=== PATIENT | female | born 1945 | race Caucasian/White ===

== ENCOUNTER 2017-06-23 06:49 | Day surgery (SDC) | payer MEDICARE ==
[~2017-06-23 06:49] MED LIST: LISINOPRIL-HCTZ1 T11 PO; PRAVACHOL40 MG PO
[2017-06-23 07:58] LABS: BASOPHILS 0.3 % (0-2); EOSINOPHILS 1.3 % (0-7); HEMATOCRIT 40.9 % (36.0-48.0); HEMOGLOBIN 13.8 g/dL (12-16); IMMATURE GRANULOCYTES 0.2 % (0-5); LYMPHOCYTES 28.5 % (15-50); MCH 30.9 pg (26.0-34.0); MCHC 33.7 g/dL (31.0-37.0); MCV 91.7 fL (80.0-100.0); MEAN PLATELET VOLUME 9.5 fL (7.4-10.4); MONOCYTES 10.4 % (2-11); NEUTROPHILS 59.3 % (40-80); PLATELET COUNT 213 10x3/uL (130-400); RBC 4.46 10x6/uL (4.00-5.40); WBC 5.9 10x3/uL (4.8-10.8)
[2017-06-23 08:20] LABS: ANION GAP 14.1 mmol/L (8-16); APTT 33.1 SECONDS (22.8-39.4); CALCIUM 9.8 mg/dL (8.5-10.1); CARBON DIOXIDE 25.9 mmol/L (21.0-32.0); CREATININE - SERUM 1.5 mg/dL (0.6-1.3); INR 0.96 (0.85-1.17); PROTIME 12.6 SECONDS (11.6-15.0)
[2017-06-23 14:03] VITALS: BP 124/73; BMI 19.2
--- NOTE | 2017-07-02 10:04 | OP ---
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 PROCEDURES: 1. Total colonoscopy to cecum. 2. Cold endoscopic biopsies of the polyp and ablation of the remainder of the polypoid mass with the argon plasma office secretary. 3. Tattooing of the fold on which the mass sits with submucosal injection of Halley ink. REHAB/PRE VOCATIONAL COUNSELOR: None. BLOOD LOSS: Minimal. ANESTHESIA: General. COMPLICATIONS: None. The risks, possible complications, and alternatives to procedure were explained to the patient. She elects to proceed. OPERATIVE COURSE: The patient was conveyed to the operating room electively on 06/23/2017. General anesthesia was induced by anesthesia staff. The patient was placed in the Woods position. A digital rectal examination was performed. A colonoscope was inserted through the anus. It was easily advanced to the cecum. The prep was adequate. Upon withdrawal, I irrigated and aspirated extensively. A combination of direct imaging as well as narrow band imaging was utilized. The mass was at 1 meter. Multiple cold endoscopic biopsies were performed. I then ablated the remaining portion of the polyp with the argon plasma office secretary utilizing the right colon setting in the forced mode. Upon further withdrawal, there were some diminutive polyps which were all under 5 mm and these were not biopsied, but they were ablated with the argon plasma office secretary. A retroflexed view was obtained in the rectum. I then unretroflexed the scope and removed it under direct vision. I will see the patient in my office in 2-3 weeks. I am very concerned about of this tattooed lesion as this very likely could represent a malignancy. TRANSINT:[id number] Voice Confirmation ID: [id number] DOCUMENT ID: [id number] OPERATIVE REPORT [id number] TRENTON ZIMMERMAN MAY SHAFER MD at 1004 CC: CHILO VILLEGAS MD and KELSIE LI MD [id number] DICTATION DATE: 06/23/17 1629 PHILOSOPHY FACULTY MEMBER: 06/23/171932 [facility] 06/23/17 [facility] [address] [place] [address]
--- NOTE | 2017-07-02 10:04 | HP ---
PATIENT: TRENTON ZIMMERMAN MEDICAL RECORD: [id number] ACCOUNT: [id number] LOCATION:[place] : 43 ADMISSION DATE: 06/23/17 HISTORY AND PHYSICAL EXAMINATION There is a typed history and physical on the chart. I have personally reviewed the endoscopic photos. The patient was referred by Dr. Edge. The patient had a tubular adenoma with high-grade dysplasia in the transverse colon. She is now to undergone colonoscopy with polypectomy utilizing the argon plasma logistics assistant. The risks, possible complications, and alternatives to the procedure were explained to the patient. She elects to proceed. TRANSINT:[id number] Voice Confirmation ID: [id number] DOCUMENT ID: [id number] MAY SHAFER MD at 1004 CC: CHILO EDGE MD and KELSIE LI MD [id number] DICTATION DATE: 06/23/17 1625 SORT MANAGER: 06/23/17 1642 [facility] 06/23/[address] [address]
[2017-07-28] MEDS ORDERED: CALCIUM 500 + D1 TAB PO (12:21)
[2017-07-28] MEDS ORDERED: MULTIPLE VITAMI1 TA1 PO (12:22)
== END 2017-06-23 18:15 | disposition home or self-care (01) ==
LOC: D.OPS 06:49 → D.PAN 09:00 → D.OPS 09:15
PROVIDERS: Anesthesiology
DX: D12.3 Benign neoplasm of transverse colon (principal); Z01.812 Encounter for preprocedural laboratory examination

== ENCOUNTER 2017-07-30 08:39 | Inpatient (IN) | payer MEDICARE ==
[2017-07-30] VITALS (10 sets, daily range): BP systolic 115–126; BP diastolic 51–74; BMI 19.2; BMI 19.0
[~2017-07-30] VITALS: Ht 172.7 cm; Wt 56.7 kg
[~2017-07-30 08:39] MED LIST changes: +CALCIUM 500 + D1 TAB PO; +MULTIPLE VITAMI1 TA1 PO
[2017-07-30 09:16] LABS: HEMATOCRIT 41.5 % (36.0-48.0); HEMOGLOBIN 14.2 g/dL (12-16); MCH 30.5 pg (26.0-34.0); MCHC 34.2 g/dL (31.0-37.0); MCV 89.2 fL (80.0-100.0); MEAN PLATELET VOLUME 8.7 fL (7.4-10.4); RBC 4.65 10x6/uL (4.00-5.40); RDW 12.1 % (11.5-14.5); WBC 7.5 10x3/uL (4.8-10.8)
[2017-07-30 09:33] LABS: CALCIUM 9.8 mg/dL (8.5-10.1); CARBON DIOXIDE 25.3 mmol/L (21.0-32.0); CREATININE - SERUM 2.2 mg/dL (0.6-1.3); POTASSIUM - SERUM 3.3 mmol/L (3.5-5.1)
--- NOTE | 2017-07-30 12:16 | NUR ---
MANSOORDING BAND AND RING WITH STONES ON LEFT RING FINGER, TAPED, EXPLAINED THEY MAY NEED TO CUT AND REMOVE DURING SURGERY, SHE AGREED IF NECESSARY.
--- NOTE | 2017-07-30 16:25 | NUR ---
RETURNED FROM SURGERY. A/O X3. 4 SMALL INSERTION SITES TO ABDOMEN, CLEAN AND DRY. FIANCE IN ROOM. DENIES NEEDS.
--- NOTE | 2017-07-30 19:18 | NUR ---
DR SHAFER NOTIFIED OF DECREASED URINE OUTPUT. NEW ORDERS RECEIVED.
--- NOTE | 2017-07-30 19:30 | NUR ---
AROUSES TO VERBAL STIMULI. NO DISTRESS NOTED. EPIDURAL IN USE FOR PAIN CONTRO. PLEXI BOOTS APPLIED PER ORDERS. BUMEX 0.5 MG GIVEN IV PER ORDERS. STERI STRIPS INTACT TO ABD INCISIONS X 4. CL IN REACH.
--- NOTE | 2017-07-30 23:30 | NUR ---
PATIENT IS RESTING QUIETLY WITH EYES CLOSED. NO SIGNS OF DISTRESS NOTED. BED IN LOWEST POSITION, CALL LIGHT IN REACH. BED RAILS UP X'S 2.
[2017-07-31] VITALS: BP 126/62
--- NOTE | 2017-07-31 02:00 | NUR ---
AROUSES EASILY TO VERBAL STIMULI. NO DISTRESS NOTED. CL IN REACH
[2017-07-31 04:00] VITALS: BP 112/68
[2017-07-31 04:52] LABS: BASOPHILS 0.1 % (0-2); EOSINOPHILS 0 % (0-7); IMMATURE GRANULOCYTES 0.3 % (0-5); LYMPHOCYTES 10.3 % (15-50); MCHC 33.8 g/dL (31.0-37.0); MEAN PLATELET VOLUME 9.5 fL (7.4-10.4); MONOCYTES 11.9 % (2-11); NEUTROPHILS 77.4 % (40-80); RDW 12.3 % (11.5-14.5)
[2017-07-31 04:54] LABS: HEMATOCRIT 33.1 % (36.0-48.0); HEMOGLOBIN 11.2 g/dL (12-16); MCV 91.7 fL (80.0-100.0); PLATELET COUNT 183 10x3/uL (130-400); RBC 3.61 10x6/uL (4.00-5.40); WBC 11.2 10x3/uL (4.8-10.8)
[2017-07-31 05:09] LABS: ANION GAP 13.8 mmol/L (8-16); BILIRUBIN - TOTAL 0.54 mg/dL (0.2-1.3); CALCIUM 8.2 mg/dL (8.5-10.1); MAGNESIUM - SERUM 1.7 mg/dL (1.8-2.4); PHOSPHOROUS 3.8 mg/dL (2.5-4.9); PROTEIN - SERUM 6.3 g/dL (6.4-8.2)
--- NOTE | 2017-07-31 05:09 | NUR ---
EYES CLOSED. RESP EVEN AND UNALBORED. NO DISTRESS NOTED. CL IN REACH
[2017-07-31 05:16] LABS: CREATININE - SERUM 1.5 mg/dL (0.6-1.3); POTASSIUM - SERUM 3.8 mmol/L (3.5-5.1)
--- NOTE | 2017-07-31 07:49 | NUR ---
AWAKE AND ALERT. ORIENTED X3. STILL NUMB IN LOWER EXTREMETIES. DENIES PAIN. LUNGS ARE CLEAR BILATERALLY, NO COUGH NOTED. SKIN IS INTACT WITHOUT REDNESS EXCEPT 4 SMALL INSERTION SITES TO ABDOMEN WHICH ARE CLEAN AND DRY. HOLLINGSWORTH PATENT WITH CLEAR YELLOW URINE. INSTRUCTED IN USE OF IS WITH RETURN DEMONSTRATION. IV TO LEFT FOREARM IS PATENT WITHOUT REDNESS AT INSERTION SITE. SL TO LEFT HAND ALSO PATNET WITHOUT REDNESS. DENIES NEEDS.
[2017-07-31 09:13] VITALS: BP 119/57
--- NOTE | 2017-07-31 09:43 | NUR ---
RESTING QUIETLY IN BED. DENIES NEEDS.
[2017-07-31 10:27] VITALS: Ht 172.7 cm; Wt 56.7 kg
[2017-07-31 13:16] VITALS: BP 121/60
[2017-07-31 15:53] VITALS: BP 114/46
--- NOTE | 2017-07-31 18:12 | NUR ---
RESTING QUIETLY AT THIS TIME. NO CHANGES NOTED.
[2017-07-31 20:56] VITALS: BP 128/55
[2017-08-01] VITALS (7 sets, daily range): BP systolic 113–129; BP diastolic 51–63
--- NOTE | 2017-08-01 07:30 | NUR ---
AWAKE AND ALERT. ORIENTED X3. NO C/O AT THIS TIME. LUNGS ARE CLEAR BILATERALLY, NO COUGH NOTED. SKIN IS INTACT WITHOUT REDNESS EXCEPT 4 SMALL INSERTION SITES WHICH ARE CLEAN AND DRY. HOLLINGSWORTH PATNET WITH CLEAR YELLOW URINE. IV TO LEFT FOREARM IS PATENT WIT[place]OUT REDNESS AT INSERTION STIE. SL TO LEFT HAND ALSO PATENT. REPORTS RIGHT THIGH IS STILL NUMB. EPIDURAL IN PLACE.
--- NOTE | 2017-08-01 18:33 | NUR ---
RESTING QUIETLY IN BED. NO CHANGES NOTED. DENIES NEEDS.
--- NOTE | 2017-08-01 19:25 | NUR ---
RECIEVED SHIFT REPORT. PT IS LYING IN BED. ALERT AND ORIENTED AND ABLE TO VERBALIZE NEEDS. IV IS PATENT AND FLUIDS ARE RUNNING PER ORDER. HOLLINGSWORTH IS DRAINING URINE BY GRAVITY. PT IS ABLE TO ASSIST IN TURNING IN BED FOR COMFORT AND SKIN CARE. PT DENIES ANY PAIN AT THIS TIME. PLEXI BOOTS ON. NO NEEDS ARE VERBALIZED AT THIS TIME. WILL CONTINUE TO MONITOR. SIDE RAILS ARE UP X 2. BED IS IN LOWEST POSITION. CALL LIGHT IS WITHIN REACH.
--- NOTE | 2017-08-01 21:05 | NUR ---
SHIFT ASSESSMENT COMPLETED. PT STATUS REMAINS UNCHANGED FROM PREVIOUS. NO NEEDS ARE VOICED. WILL MONITOR. SIDE RAILS X 2. BED LOW. CALL LIGHT IN REACH.
--- NOTE | 2017-08-01 23:13 | NUR ---
PT FEELING NAUSEATED AT THIS TIME. ADMINISTERED PRESCRIBED PRN ZOFRAN PER ORDER. WILL MONITOR. SIDE RAILS X 2. BED LOW. CALL LIGHT IN REACH.
[2017-08-02 03:59] VITALS: BP 116/57
--- NOTE | 2017-08-02 07:55 | NUR ---
PATIENT RESTING QUIETLY IN BED. VSS. ALERT AND ORIENTED X3. NO COMPLAINTS AT THIS TIME. WILL CONTINUE TO MONITOR.
[2017-08-02 08:52] VITALS: BP 125/64
--- NOTE | 2017-08-02 09:45 | NUR ---
pt seen. no complaints at present. bowel sounds present and states is passing gas a little. stearns present. bilat plexi pulses on feet-epidural in place and pt states good pain control-lap sites x 4 noted. call lighy in reach
--- NOTE | 2017-08-02 12:21 | NUR ---
NUTRITION F/U PT REMAINS NPO S/P HALS COLECTOMY. WILL PROVIDE DIET WHEN ADVANCED, MONITOR PO INTAKE. RD FOLLOWING
[2017-08-02 12:44] VITALS: BP 118/49
--- NOTE | 2017-08-02 14:30 | NUR ---
EPIDURAL REMOVED BY ANESTHESIA. PAIN MEDICATION GIVEN BY RN. VSS. ALERT AND ORIENTED X3. NO COMPLAINTS AT THIS TIME.
[2017-08-02 16:20] VITALS: BP 119/51
--- NOTE | 2017-08-02 19:30 | NUR ---
RECIEVED SHIFT REPORT. PT IS LYING IN BED. ALERT AND ORIENTED AND ABLE TO VERBALIZE NEEDS. IV IS PATENT AND FLUIDS ARE RUNNING PER ORDER. HOLLINGSWORTH IS DRAINING URINE BY GRAVITY. PT IS ABLE TO ASSIST IN TURNING IN BED FOR COMFORT AND SKIN CARE. LAP SITES TO ABDOMEN C/D/I. PT DENIES ANY PAIN AT THIS TIME. PLEXIS ON. NO NEEDS ARE VERBALIZED AT THIS TIME. WILL CONTINUE TO MONITOR. SIDE RAILS ARE UP X 2. BED IS IN LOWEST POSITION. CALL LIGHT IS WITHIN REACH.
[2017-08-02 20:00] VITALS: BP 132/56
--- NOTE | 2017-08-02 21:42 | NUR ---
SHIFT ASSESSMENT COMPLETED. PT C/O NAUSEA. ADMINISTERED PRESCRIBED PRN ZOFRAN PER ORDER. DENIES FURTHER NEEDS. WILL MONITOR. SIDE RAILS X 2. BED LOW. CALL LIGHT IN REACH.
[2017-08-03 04:00] VITALS: BP 122/53
--- NOTE | 2017-08-03 08:18 | NUR ---
PT SEEN EARILER-NO COMPLAINTS AT PRESENT. BOWEL SOUNDS VERY ACTIVE PT STATES PASSING GAS. HOLLINGSWORTH REMOVED AFTER BULB DEFLATED ORDERED. PLEXIS PULSE OFF AT PRESENT. PT STATES NO PAIN. LAP SITES X 4 NOTED CLEAN DRY AND INTACT. CALL LIGHT IN REACH
--- NOTE | 2017-08-03 09:04 | NUR ---
Patient Name: TRENTON ZIMMERMAN Admission Status: Elective Accout number: [id number] Admission Date: 07-30-2017 : 1945 Admission Diagnosis: Attending: MAY SHAFER Current LOS: 4 Anticipated DC Date: Planned Disposition: Home Primary Insurance: [employer] CHOICE PPO MCR [employer] Discharge Planning Comments: CM met with patient to assess discharge planning needs. Patient lives independently at home with her , Brendan. Brendan will be the one to drive her home at discharge. She denies any DME and does not want HH services at this time. There are no steps in her home. She stated that it is safe for her to return. CM will continue to follow and assist with discharge planning needs. PCP: [facility] [address] Brendan () [phone] Service Tech/Welder: Taya Vargas * Is the patient Alert and Oriented? Yes 0 * How many steps to enter\exit or inside your home? 0 0 * PCP Rl 0 * [facility] [address] 0 * Preadmission Environment Home with Family 0 * ADLs Independent 0 * List name and contact numbers for known caregivers / representatives who currently or will assist patient after discharge: Brendan () [phone] * Community resources currently utilized None 0 * Additional services required to return to the preadmission environment? No 0 * Can the patient safely return to the preadmission environment? Yes 0 * Has this patient been hospitalized within the prior 30 days at any hospital? No 0 Grand Total: 0
[2017-08-03 09:11] VITALS: BP 113/78
[2017-08-03 11:56] VITALS: BP 128/51
--- NOTE | 2017-08-03 13:20 | NUR ---
pt has been ambulating in hallway with spouse. no concerns. voids freely. sitting in chair at bedside performing adl with linen change. tolerated well without complaints
[2017-08-03 15:23] VITALS: BP 117/52
--- NOTE | 2017-08-03 19:20 | NUR ---
RECIEVED SHIFT REPORT. PT IS LYING IN BED. ALERT AND ORIENTED AND ABLE TO VERBALIZE NEEDS. IV IS PATENT AND FLUIDS ARE RUNNING PER ORDER. PT IS AMBULATORY BUT WAS INSTRUCTED TO CALL FOR ANY ASSISTANCE NEEDED. PLEXI'S OFF AT THIS TIME. PT DENIES ANY PAIN AT THIS TIME. NO NEEDS ARE VERBALIZED AT THIS TIME. WILL CONTINUE TO MONITOR. SIDE RAILS ARE UP X 2. BED IS IN LOWEST POSITION. CALL LIGHT IS WITHIN REACH.
[2017-08-03 20:00] VITALS: BP 112/61
--- NOTE | 2017-08-03 20:36 | NUR ---
SHIFT ASSESSMENT COMPLETED. PT C/O PAIN 09/08 AND NAUSEA. ADMINISTERED PRESCRIBED RPN ZOFRAN AND OXY IR PER ORDER. DENIES FURTHER NEEDS. WILL MONITOR. SIDE RAILS X 2. BED LOW. CALL LIGHT IN REACH.
[2017-08-04] VITALS: BP 117/51
[2017-08-04 04:00] VITALS: BP 126/54
[2017-08-04 07:57] VITALS: BP 140/57
--- NOTE | 2017-08-04 08:00 | NUR ---
PT AOX4 RESP EVEN AND NONLABORED PT DENIES NEEDS AT THIS TIME IV TO LEFT FOREARM PATENT AND INTACT AT THIS TIME SRX2 BED AT LOWEST SETTING CALL LIGHT WITHIN REACH WILL CONTINUE TO MONITOR
[2017-08-04] MEDS ORDERED: COLACE100 MG PO (08:26)
[2017-08-04] MEDS ORDERED: ZOFRAN ODT4 MG/UDTAB PO (08:27)
[2017-08-04] MEDS ORDERED: HYDROCODON-ACE1 EAC7 PO (08:28)
--- NOTE | 2017-08-04 08:40 | NUR ---
Patient being discharged home today, denies any HH or CM needs. to drive home
--- NOTE | 2017-08-04 12:58 | NUR ---
IV DISCONTINUED WITH CATHETER INTACT AT THIS TIME DISCHARGE PAPERWORK AND 3 PRESCRIPTIONS GIVEN TO PT AT THIS TIME PT TAKEN VIA WHEELCHAIR VIA PRIVATE VEHICLE AT THIS TIME
--- NOTE | 2017-09-22 11:31 | OP ---
PATIENT NAME: TRENTON ZIMMERMAN MEDICAL RECORD: [id number] :43 LOCATION:D.MS [id number] ADMISSION DATE:07/30/17 SURGEON: MAY SHAFER MD DATE OF OPERATION: 07/30/2017 PRINCIPAL DIAGNOSIS: Proximal transverse colon mass. POSTOPERATIVE DIAGNOSIS: Proximal transverse colon mass. PROCEDURE: Hand-assisted laparoscopic surgery - right hemicolectomy. SURGEON: May Shafer MD LEAD MASON TENDER: None. BLOOD LOSS: 100 cc. ANESTHESIA: General. COMPLICATIONS: None. The risks, possible complications, and alternatives to procedure were explained to the patient. She elects to proceed. OPERATIVE COURSE: The patient was conveyed to the operating room electively on 07/30/2017. General anesthesia was induced by the anesthesia staff. The abdomen was sterilely prepped and draped. An incision was accomplished in the right side of abdomen. This was a muscle type of incision. I incised the external oblique aponeurosis and its muscles along the direction of its fibers. I then the internal oblique and transversus abdominis muscle layers. The Angel retractor was placed. The Gelport was applied on top of the Angel retractor. Through the Gelport, a 12-mm trocar was advanced. CO2 insufflation was begun. Once a sufficient pneumoperitoneum had been achieved, an abdominal survey was undertaken. I placed 3 more trocars. These were 5-mm trocars. One was placed in the epigastrium, one at the umbilicus, and one inferiorly in the suprapubic area. During insertion of the Gelport and all trocars, there appeared to have been no injury to the bowels, any intraperitoneal or retroperitoneal structures. I began to search for the tattooed area. I incised along the right white line of Toldt. I pulled the right colon medially. I swept down the duodenum, which was protected and undamaged during this procedure. The retroperitoneal attachments at the hepatic flexure were taken down sharply as well. I was then able to exteriorize the right colon through the Angel device. I stapled across the terminal ileum with a DEVIN-75 stapler. I then stapled across the proximal transverse colon with the DEVIN-75 stapler. The interposed mesentery was then sealed and divided with the EnSeal device. I swept down the ureter, which was protected during the procedure and was undamaged. I then opened the bowel specimen on the back table. It revealed that the tattooed mass was present within the excised specimen and was in grossly had wide margins. The ileum and the transverse colon were then placed into apposition side by OPERATIVE REPORT [id number] TRENTON ZIMMERMAN side. A small enterotomy and small colotomy were accomplished. Anvils of the DEVIN-75 stapler were advanced and then fired. The resulting intracolonic defect was then closed with a single firing of a TA 60 stapler. The resulting mesenteric rent was closed with a running #1 Vicryl. I irrigated and aspirated. There was no bleeding. I then reperitonealized in the right side of the abdomen with a running #1 Vicryl. I then approximated the internal oblique and transverse abdominis muscle layers with running #1 Vicryls. The external oblique aponeurosis and muscle were approximated with running #1 Vicryls. All the trocars were removed. The trocar site in the epigastrium as well as in the suprapubic area were closed with interrupted intracuticular 3-0 Vicryls. The skin at the umbilicus was closed with interrupted 4-0 Vicryl Rapide sutures. The subdermis at the right-sided incision was closed with interrupted 3-0 Vicryls. The skin was approximated with a running intracuticular 3-0 Vicryl. Benzoin and Steri-Strips were applied. The patient was then extubated and conveyed to post-anesthesia care unit where she was in stable condition. TRANSINT:[id number] Voice Confirmation ID: [id number] DOCUMENT ID: [id number] MAY SHAFER MD at 1131 CC: CHILO VILLEGAS MD [id number] DICTATION DATE: 09/16/17 1458 CLIENT ONBOARDING ANALYST: 09/16/17 1532 DIS IN 08/04/17 [address] [place] [address]
--- NOTE | 2017-09-22 11:31 | DS ---
PATIENT:TRENTON ZIMMERMAN :[birth year] MEDICAL RECORD: [id number] DISCHARGE SUMMARY ADMISSION DATE: 07/30/17 DISCHARGE DATE: 08/04/17 PRINCIPAL DIAGNOSES: 1. Adenocarcinoma of the proximal transverse colon. 2. Hypertension. 3. History of hemorrhoidectomy. PROCEDURE: Hand-assisted laparoscopic colectomy - right hemicolectomy. HOSPITAL COURSE: The patient was admitted to undergo the above operative procedure. The pathology on the terminal ileum, cecum, and ascending colon as well as a portion of the transverse colon revealed colonic adenocarcinoma, which was invading the submucosal at a previous biopsy site. Four lymph nodes were negative for metastatic carcinoma. There were also hyperplastic polyps. The patient underwent the above operative procedure. Postoperatively, her pain was controlled with an epidural pain pump. Her bowel function returned. Her diet was advanced. She was dismissed home. I am going to see her in the office. She will be following up with an oncologist as well. TRANSINT:[id number] Voice Confirmation ID: [id number] DOCUMENT ID: [id number] MAY SHAFER MD at 1131 CC: CHILO VILLEGAS MD [id number] DICTATION DATE: 09/16/17 1501 PLATING ENGINEER: 09/17/17 1011 DIS IN 08/04/17 [address] [place] [address]
== END 2017-08-04 12:59 | disposition home or self-care (01) | DRG 330 ==
LOC: D.MS 08:39 → D.SDCHOLD 08:39 → D.MS 15:01 → D.SDCHOLD 08-02 16:07 → D.MS 08-02 16:08
PROVIDERS: Anesthesiology; ADMIT Surgery
PROC: 0DBF0ZZ Excision of Right Large Intestine, Open Approach (ICD-10-PCS; principal; 2017-07-30 11:00)
DX: C18.9 Malignant neoplasm of colon, unspecified (principal); N17.9 Acute kidney failure, unspecified; R19.09 Other intra-abdominal and pelvic swelling, mass and lump

== ENCOUNTER 2020-02-12 06:16 | Outpatient (CLI) | payer MEDICARE ==
[~2020-02-12] VITALS: Ht 172.7 cm; Wt 47.7 kg
--- NOTE | ~2020-02-12 | HEMODYNAMI ---
PATIENT:TRENTON ZIMMERMAN MEDICAL RECORD: [id number] : 43 LOCATION:ERIC ADMISSION DATE: 02/12/20 Generatedon:02/12/202010:08 Patient name: TRENTON ZIMMERMAN Patient #: [id number] SSN: : 1945 Date of study: 02/12/2020 Page: Of Hemodynamic Procedure Report Patient Data Patient Demographics Procedure consent was obtained First Name: TRENTON Gender: Female Last Name: ERASMO : 1945 Middle Initial: LUCAS Age: 74 year(s) Patient #: [id number] Race: Unknown Additional ID: [id number] Contact details [address]: [address] [place] [address] RO[address] State: [place] City: [place] Zip code: [address] Past Medical History Allergies Allergen Reaction Date Comments Reported Other allergy 02/12/2020 formaldehyde Admission Admission Data Admission Date: 02/12/2020 Admission Time: 6:16 Procedure Procedure Types Cath Procedure Peripheral vascular Intervention Embolization Chemo Embolization Procedure Description Procedure Date Procedure Date: 02/12/2020 Procedure Start Time: 8:50 Procedure Staff Name Function Juan Mar MD Performing Physician Hemal De La Garza RT Monitor Hemal De La Garza RT Scrub Emma PERSAUD RN Nurse Procedure Data Cath Procedure Fluoroscopy Diagnostic fluoroscopy Total fluoroscopy Time: 16 time: 16 min min Diagnostic fluoroscopy Total fluoroscopy dose: 390 dose: 390 mGy mGy Contrast Material Contrast Material Type Amount (ml) Isovue 300 110 Diagnostic catheters Device Type Used For End Catheter Placement Cook CHG-B 5FR 65CM catheter ([id number]) Procedure Medications Medication Administration Route Dosage Lidocaine 1% added to field 20 Heparin Flush Bag added to field 2 bags (1000units/500ml NS) Heparin Flush Bag added to field 1 bags (1000units/500ml NS) Heparin Flush Bag added to field 1 bags (1000units/500ml NS) unlisted medication I.V. 1 Versed I.V. 1 mg Fentanyl I.V. 50 mcg unlisted medication added to field 10 ml Fentanyl I.V. 25 mcg Zofran I.V. 4 mg Hemodynamics Rest Heart Rate: 88 (bpm) Snapshots Pre Cath Intra NCS Post Cath Vital Signs Time Heart Resp SPO2 etCO2 NIBP (mmHg) Rhythm Pain Sedation Rate (ipm) (%) (mmHg) Status Level (bpm) 8:31:05 86 7 33.3 141/70(104) NSR 0 (11) 9(A) , No pain 8:35:17 86 12 34 142/73(104) NSR 0 (11) 9(A) , No pain 8:39:31 86 8 33.2 135/64(107) NSR 0 (11) 9(A) , No pain 8:43:43 83 9 34 134/65(101) NSR 0 (11) 9(A) , No pain 8:47:53 85 10 100 34 132/69(97) NSR 0 (11) 9(A) , No pain 8:52:05 88 11 100 34.7 133/66(95) NSR 0 (11) 9(A) , No pain 8:56:14 82 4 98 34.7 123/69(96) NSR 0 (11) 9(A) , No pain 9:00:22 83 8 94 37.1 130/64(96) NSR 0 (11) 9(A) , No pain 9:04:32 86 10 99 37.1 131/65(94) NSR 0 (11) 9(A) , No pain 9:08:42 80 9 99 36.3 123/67(93) NSR 0 (11) 9(A) , No pain 9:12:50 85 13 92 19.6 126/66(94) NSR 0 (11) 9(A) , No pain 9:17:00 82 9 100 32.5 130/66(96) NSR 0 (11) 9(A) , No pain 9:21:12 80 10 100 34.7 131/59(94) NSR 0 (11) 9(A) , No pain 9:25:22 86 9 99 22.6 128/69(88) NSR 0 (11) 9(A) , No pain 9:29:32 81 10 100 33.2 128/66(102) NSR 0 (11) 9(A) , No pain 9:33:42 77 12 100 34 129/65(96) NSR 0 (11) 9(A) , No pain 9:37:51 72 6 98 33.2 123/66(87) NSR 0 (11) 9(A) , No pain 9:42:01 77 6 100 33.2 127/61(96) NSR 0 (11) 9(A) , No pain 9:46:07 85 10 100 34 140/73(102) NSR 0 (11) 9(A) , No pain 9:50:19 80 7 98 36.3 142/69(95) NSR 0 (11) 9(A) , No pain 9:54:31 76 9 99 37 137/70(94) NSR 0 (11) 9(A) , No pain 9:58:43 75 15 100 38.5 140/69(100) NSR 0 (11) 9(A) , No pain 10:02:55 76 8 100 38.5 136/69(100) NSR 0 (11) 9(A) , No pain 10:07:05 97 0 No Cuff NSR 0 (11) 9(A) , No pain Medications Time Medication Route Dose Verified Delivered Reason Notes Effect iveness by by 8:30:41 Lidocaine 1% added 20ml Juan Minner used for to vial Mar HUNG procedure field MD STEPHENS 8:30:56 Heparin Flush added 2 Juan Minner used for Bag to bags Mar HUNG procedure (1000units/500ml field MD STE[place] NS) 8:30:58 Heparin Flush added 1 Juan Minner used for Bag to bags Mar HUNG procedure (1000units/500ml field MD [place] NS) 8:31:00 Heparin Flush added 1 Juan Minner used for Bag to bags Mar HUNG procedure (1000units/500ml field MD [place] NS) 8:43:00 Ceftriaxone I.V. 1 Juan Minner Per gram Mar HUNG protocol MD [place] 8:51:10 Versed I.V. 1 mg Juan Minner for Mar HUNG sedation MD STEPHENS 8:51:25 Fentanyl I.V. 50 Juan Minner for mcg Mar HUNG sedation MD RN 9:10:58 Bupivacaine added 10 ml Juan Martinez used for 0.25% to Mar Mar procedure field MD DO 9:37:45 Fentanyl I.V. 25 Juan Martinez for mcg Mar Mar sedation MD OD 9:50:54 Zofran I.V. 4 mg Juan Martinez for Mar Mar nausea MD DO Procedure Log Time Note 8:20:44 Emma PERSAUD RN sent for patient. Start room use. 8:20:51 Time tracking: Regular hours (M-F 7:00 - 5:00) 8:20:57 Plan of Care:Hemodynamics will remain stable., Cardiac rhythm will remain stable., Comfort level will be maintained., Respiratory function will remain adequate., Patient/ family verbilizes understanding of procedure., Procedure tolerated without complication., Recovers from procedure without complications.. 8:21:02 Patient received from Outpatients to IR Alert and oriented. Tansferred to table in Supine position. 8:21:09 Signed procedure consent form obtained from patient. 8:21:10 Correct patient and procedure confirmed by team. 8:21:11 Full Disclosure recording started 8:21:12 - 8:21:17 H&P Date Dictated: 02/12/2020 H&P Addendum completed by physician on day of procedure. (MUST COMPLETE FOR ALL OUTPATIENTS). 8:21:18 Pre-procedure instructions explained to patient. 8:21:19 Pre-op teaching completed and patient verbalized understanding. 8:21:21 Family unavailable. 8:21:23 Patient NPO since Midnight. 8:21:29 Use device set IR Diagnostic 8:21:30 Tegaderm 4 x 4 (1626W) opened to sterile field. 8:21:31 Sterile Angiographic Pack opened to sterile field. 8:21:31 Bag Decanter () opened to sterile field. 8:22:38 Patient allergic to Other allergyformaldehyde 8:22:43 Is patient on blood thinner?No 8:23:48 Patient diabetic? No. 8:23:50 - 8:23:51 ----Pre-sedation anethsthesia assessment.---- 8:23:53 Previous problem with sedation/anesthesia? No ? 8:23:55 Snore? Yes 8:23:56 Sleep apnea? No 8:23:57 Deviated septum? No 8:23:59 Opens mouth fully? No 8:24:01 Sticks out tongue? Yes 8:24:03 Airway obstruction? Yes ? 8:24:06 Dentures? No ? 8:24:21 IV patent on arrival in left hand with Lactated Ringers at O. 8:29:54 ECG and BP/O2 sat monitors applied to patient. 8:29:54 Vital chart was started 8:29:56 Baseline sample Acquired. 8:30:41 Lidocaine 1% 20ml vial added to field was administered by Emma Boyce RN; used for procedure; Verbal order read back and verified. 8:30:56 Heparin Flush Bag (1000units/500ml NS) 2 bags added to field was administered by Emma PERSAUD RN; used for procedure; Verbal order read back and verified. 8:30:58 Heparin Flush Bag (1000units/500ml NS) 1 bags added to field was administered by Emma PERSAUD RN; used for procedure; Verbal order read back and verified. 8:31:00 Heparin Flush Bag (1000units/500ml NS) 1 bags added to field was administered by Emma PERSAUD RN; used for procedure; Verbal order read back and verified. 8:31:40 Right groin area was prepped with chlora-prep and draped in sterile fashion 8:43:00 Ceftriaxone 1 gram I.V. was administered by Emma PERSAUD RN; Per protocol; Verbal order read back and verified. 8:49:11 Physician arrived 8:49:11 --------ALL STOP TIME OUT------ 8:49:12 Final Timeout: patient, procedure, and site verified with staff and physician. All members of the team are in agreement. 8:49:13 Right groin site verified by team. 8:49:22 Fire Safety Assessment: A--An alcohol-based skin anteseptic being used preoperatively., C--Open oxygen or nitrous oxide is being used. 8:49:31 3a) 45-59 Moderately reduced kidney function. 8:50:19 Maximum allowable contrast dose (3.7 X eGFR X 0.75)127.65 ml. 8:50:23 Sedation plan: IV Moderate Sedation Medication:Versed, Fentanyl 8:50:27 Procedure started. 8:50:32 Local anesthetic to right femoral artery with Lidocaine 1% by Juan Mar MD.INITIAL ACCESS ONLY 8:50:43 ACIST Syringe (36883) opened to sterile field. 8:50:43 ACIST Hand Control (40916) opened to sterile field. 8:50:44 ACIST Manifold (87908) opened to sterile field. 8:50:44 TUBING Contrast Injection High Pressure (FMA455U) opened to sterile field. 8:50:44 DOC .035 wire (N96417) opened to sterile field. 8:50:45 PERCUTANEOUS ENTRY 19GA needle opened to sterile field. 8:50:45 SHEATH 5FR [place] (DMY266) opened to sterile field. 8:50:45 STOPCOCK 3-Way Large Bore (L17943) opened to sterile field. 8:50:48 A Cook CHG-B 5FR 65CM catheter (N00108) was advanced over the wire and used for . 8:51:10 Versed 1 mg I.V. was administered by Emma PERSAUD RN; for sedation; Verbal order read back and verified. 8:51:25 Fentanyl 50 mcg I.V. was administered by Emma PERSAUD RN; for sedation; Verbal order read back and verified. 8:51:38 RENEGADE HI-ETELVINA microcatheter ([id number]) opened to sterile field. 8:51:38 TRANSEND STEERABLE wire ([id number]) opened to sterile field. 8:56:44 GLIDE WIRE ANGLE 180cm (QZ4350) opened to sterile field. 8:57:53 TORQUE DEVICE PLASTIC .038 ( TD01) opened to sterile field. 8:57:54 GLIDE CATHETER 5FR COBRA 65cm (CG502) opened to sterile field. 9:04:34 COPILOT Valve Control (6800958) opened to sterile field. 9:10:58 Bupivacaine 0.25% 10 ml added to field was administered by Juan Mar MD; used for procedure; Verbal order read back and verified. 9:13:35 GLIDE CATHETER 5FR [place] 2 100cm (CG511) opened to sterile field. 9:14:37 FATHOM 200cm wire ([id number]) opened to sterile field. 9:37:45 Fentanyl 25 mcg I.V. was administered by Juan Mar MD; for sedation; Verbal order read back and verified. 9:44:28 EXOSEAL 5Fr (EX500) opened to sterile field. 9:50:54 Zofran 4 mg I.V. was administered by Juan Mar MD; for nausea; Verbal order read back and verified. 9:58:13 Procedure ended.(Physican Out) 10:00:37 Fluoroscopy time 16.00 minutes. 10:00:43 Fluoroscopy dose: 390 mGy 10:00:43 Flurop Dose total: 390 10:01:06 Contrast amount:Isovue 300 110ml. 10:02:27 Insertion/operative site no bleeding no hematoma. 10:02:52 Post-op/insertion site Right Abdominal area dressed using a 4 x 4 and Tegaderm. 10:03:06 Post Abdominal area:stable 10:03:12 Post Procedure Pulses reassessed and unchanged 10:06:54 Vital chart was stopped 10:08:03 Report given to Med/Surg. 10:08:06 Patient transfered to Med/Surg with Bed. Device Usage Item Name Manufacture Quantity Catalog Hospital Part Current Minima l Lot# / Number Charge Number Stock Stock Serial# Code Tegaderm 4 x 3M 1 [id number] 5 4 (1626W) Sterile Cardinal 1 [id number] 609025 439626 5 Angiographic Health Pack Bag Decanter Microtek 1 519349 23440 708988 5 () Medical Inc. ACIST Syringe Acist 1 86621 955236 897016 828680 20 (29417) Medical Systems Inc ACIST Hand Acist 1 04091 227834 216925 447331 5 Control Medical (46052) Systems Inc ACIST Acist 1 09619 419007 585015 882870 5 Manifold Medical (97545) Systems Inc TUBING Merit 1 [id number] 198031 340236 079994 5 Contrast Medical Injection High Pressure (YRE857W) DOC .035 wire Cook Medical 1 J58993 117877 856717 5 (K63951) PERCUTANEOUS Cook Medical 1 O58153 487164 088389 5 ENTRY 19GA needle SHEATH 5FR Terumo 1 ZEZ146 297482 192773 278348 5 [place] (IMA331) STOPCOCK Cook Medical 1 D69758 972530 3211 305982 5 3-Way Large Bore (S17506) Cook CHG-B Cook Medical 1 Q70200 947949 173797 352635 5 5FR 65CM catheter (X22689) RENEGADE [place] 1 [id number] 729255 652599 5 [id number] HI-ETELVINA Scientific microcatheter ([id number]) TRANSEND [place] 1 [id number] 299136 100137 5 [id number] STEERABLE Scientific wire ([id number]) GLIDE WIRE Terumo 1 ZA7470 965782 933503 996709 5 ANGLE 180cm (ZU6522) TORQUE DEVICE [place] 1 TD01 605261 413488 406270 5 PLASTIC .038 Scientific ( TD01) GLIDE Terumo 1 CG502 018557 155974 5 CATHETER 5FR COBRA 65cm (CG502) COPILOT Valve Ellis 1 1295166 312204 350213 829917 5 Control Vascular (9925748) GLIDE Terumo 1 CG511 402117 411169 5 CATHETER 5FR [place] 2 100cm (CG511) FATHOM 200cm [place] 1 [id number] 610021 926064 772655 5 [id number] wire Scientific ([id number]) EXOSEAL 5Fr Cardinal 1 EX500 577957 018171 467155 10 [id number] (EX500) Health Signature Audit [place] Stage Time Signature Unsigned Intra-Procedure 02/12/2020 Hemal 10:08:31 AM [place] RT (R) (CV) [id number] [place] [address]
[~2020-02-12 06:16] MED LIST changes: +COLACE100 MG PO; +HYDROCODON-ACE1 EAC7 PO; +ZOFRAN ODT4 MG/UDTAB PO
[2020-02-12 06:44] LABS: BASOPHILS 1.5 % (0-2); EOSINOPHILS 2.1 % (0-7); HEMATOCRIT 34.9 % (36.0-48.0); HEMOGLOBIN 11.3 g/dL (12-16); LYMPHOCYTES 40.7 % (15-50); MCH 32.3 pg (26.0-34.0); MCHC 32.4 g/dL (31.0-37.0); MCV 99.7 fL (80.0-100.0); MEAN PLATELET VOLUME 8.5 fL (7.4-10.4); MONOCYTES 14.7 % (2-11); RDW 15.6 % (11.5-14.5); WBC 3.3 10x3/uL (4.8-10.8)
[2020-02-12 06:53] LABS: PLATELET COUNT 141 10x3/uL (130-400)
[2020-02-12 07:04] LABS: INR 0.96 (0.85-1.17); PROTIME 12.7 SECONDS (11.6-15.0)
[2020-02-12 07:05] LABS: ALBUMIN 3.9 g/dL (3.4-5.0); ANION GAP 10.1 mmol/L (8-16); BILIRUBIN - DIRECT 0.09 mg/dL (0.00-0.30); BILIRUBIN - INDIRECT 0.39 mg/dL (0.00-1.00); BILIRUBIN - TOTAL 0.48 mg/dL (0.2-1.3); CALCIUM 9.5 mg/dL (8.5-10.1); CARBON DIOXIDE 29.7 mmol/L (21.0-32.0); CREATININE - SERUM 1.2 mg/dL (0.6-1.3); MAGNESIUM - SERUM 2.2 mg/dL (1.8-2.4); POTASSIUM - SERUM 3.8 mmol/L (3.5-5.1); PROTEIN - SERUM 7.4 g/dL (6.4-8.2)
[2020-02-12] MEDS ORDERED: CELEXA20 MG PO (07:38)
[2020-02-12] MEDS ORDERED: ATIVAN1 MG PO (07:39)
[2020-02-12] MEDS ORDERED: FEMARA2.5 MG PO (07:40)
[2020-02-12 07:41] VITALS: BP 151/67; BMI 16.0
--- NOTE | 2020-02-12 10:43 | NUR ---
RECEIVED PT FROM SPECIALS, PT IS AWAKE AND ALERT, IV TO PT LEFT HAND LR AT 150, PT HAS ORDERS FOR DN W/ K+ AND [facility] TO BRING UP. PT ALSO HAS LEFT PORT SL, CDI, PT HAS INCISION TO RT GROIN AREA, CDI, NO REDNESS OR SWELLING, PT WAS INFORMED OF ORDERS TO LYE STILL FOR A FEW HOURS, LUNGS CTA, NO S/SX OF DISTRESS, GAVE PT COLD WATER AND INFORMED OF ORDERS TO ADVANCE DIET TOLDERATED. EDUCATED PT ON HOW TO CALL FOR NURSING STAFF OR USE TV. NO OTHER NEEDS AT THIS TIME, ASSUME PT CARE
--- NOTE | 2020-02-12 11:58 | NUR ---
HAD PLACED ORDER FOR PROPAGATOR LABORER BUT SETTINGS WERE NOT ORDERED UNDER ORDER SET, CALLED PHARMACY AND SPOKE TO MARTHA PHARMACIST AND WAS TOLD TO DC ORDER AND RE-ENTER THROUGH SETS. PT IS STILL NAUSEOUS, ASSISTD PT UP TO RESTROOM AND BACK TO BED, GAVE PT COLD WASH CLOTH FOR FOREHEAD AND PLACED CL IN REACH. CONTINUE WITH PLAN OF CARE
[2020-02-12 12:24] VITALS: BP 142/67; Ht 172.7 cm; Wt 47.7 kg
[2020-02-12 12:58] VITALS: BP 142/67
--- NOTE | 2020-02-12 13:54 | NUR ---
PT LAURYN IN BED STATED SOME NAUSEA STILL BUT MUCH BETTER, SITE TO RT GROIN IS CDI, CL IN REACH, NO NEEDS VOICED, CONTINUE WITH PLAN OF CARE
[2020-02-12 16:45] VITALS: BP 138/61
[2020-02-12 20:22] VITALS: BP 133/56
[2020-02-13 00:09] VITALS: BP 127/65
[2020-02-13 05:26] VITALS: BP 118/63
[2020-02-13] MEDS ORDERED: CIPRO500 MG PO (08:46)
[2020-02-13] MEDS ORDERED: FLAGYL500 MG PO (08:47)
[2020-02-13 09:30] VITALS: BP 117/69
--- NOTE | 2020-02-13 09:45 | NUR ---
Nutrition consult: RDN visited with pt re: weight loss. Pt reports she was very nauseated with vomiting during chemo. Pt reports her appetite has returned and she is no longer losing wt. Pt reports she will continue to eat full liquids until she is confident she will not get sick from todays procedure. RDN will be available if needed Thank you for the consult.
--- NOTE | 2020-02-13 12:12 | NUR ---
IV THERAPY DC'ED FROM LEFT FOREARM WITH TIP INTACT. DISCHARGE INSTRUCTIONS GIVEN. PATIENT VERBALIZED UNDERSTANDING. PATIENT WILL NOTIFY US WHEN HAS ARRIVED TO PICK HER UP TO WHEEL HER DOWN.
== END 2020-02-13 13:26 | disposition home or self-care (01) ==
LOC: D.SP 06:16 → D.MS 10:16 → D.SP 02-13 13:26
PROVIDERS: ATTEND Specialist
DX: C18.9 Malignant neoplasm of colon, unspecified (principal); C78.7 Secondary malignant neoplasm of liver and intrahepatic bile duct